=== PATIENT | female | born 1975 | race Caucasian/White ===

== ENCOUNTER 2016-04-27 16:24 | Emergency (ER) | payer OTHER ==
--- NOTE | 2016-04-27 17:32 | ERRECORD ---
[facility] EMERGENCY RECORD HPI DVT (16:56 [facility]) CHIEF COMPLAINT: Patient presents for evaluation of soreness, Patient presents for evaluation of swelling, Patient presents for evaluation of pain. HISTORIAN: History provided by patient, 41F presents with 2 days of persistent right calf pain extending up to her right thigh. Describes mild pain with ambulation and swelling. Denies trauma, denies ankle injury. LOCATION: Symptoms are localized, most severe to R medial calf and thigh. QUALITY: Pain is dull in nature, described as aching, described as a sensation of fullness. TIME COURSE: Sudden onset of symptoms, Symptoms are worsening. ASSOCIATED WITH: No associated symptoms. EXACERBATED BY: Patient's condition exacerbated by bearing weight. RELIEVED BY: Patient's condition relieved by nothing because patient has not tried anything for relief. RISK FACTORS: Deep vein thrombosis risk factors, include oral contraceptive use. ROS (18:14 [facility]) CONSTITUTIONAL: Negative constitutional review of systems, Historian denies chills, denies fever. CARDIOVASCULAR: Negative cardiovascular review of systems, Historian denies chest pain, denies palpitations. RESPIRATORY: Negative respiratory review of systems, Historian denies cough, denies shortness of breath. GI: Negative gastrointestinal review of systems, Historian denies abdominal pain, denies constipation, denies diarrhea, denies nausea, denies vomiting. GENITOURINARY FEMALE: Negative genitourinary review of systems, Historian denies dysuria, denies frequency. SKIN: Negative skin review of systems, Historian denies rash, denies skin changes. NEUROLOGIC: Negative neurologic review of systems, Historian denies headache. HEMO/LYMPHATIC: Normal hematologic/lymphatic system review, Historian denies abnormal blood clotting. PAST MEDICAL HISTORY (16:51 [facility]) MEDICAL HISTORY: Past medical history includes cardiac history, unspecified arrhythmia, Past medical history includes history of hyperlipidemia, Past medical history includes history of diabetes, Type II, Past medical history includes history of hypertension, which has been treated, Past medical history includes history of obesity. FEMALE SURGICAL HISTORY: CYST REMOVED FROM OVARY BILATERAL, ENDOMETRIOSIS, Surgical history of cholecystectomy, laparoscopic, Breast Augmentation:, Date of surgery 2001. breast reduction, 2 EXPLORATORY LAPS, BENIGN TUMOR REMOVED FROM NECK-2015. PSYCHIATRIC HISTORY: Psychiatric history includes, &a-1R&a+25V*p+0X*t0778C*c202B*c15G*c2P*p-0X&a-25V&a+1R Name: Yun Lizarraga : 1975 F41 MedRec: [id number] AcctNum: [id number] Prepared: WedApr 27, 2016 18:27 by Interface Page 1 of 3 pMD [facility] EMERGENCY RECORD schizoaffective disorder, Notes: BIPOLAR AND ANXIETY DISORDER. SOCIAL HISTORY: Patient denies alcohol use, Patient denies drug use, Patient is a former tobacco user, smoked cigarettes, Patient quit smoking more than 10 years ago. KNOWN ALLERGIES adhesive tape ketorolac tromethamine (Unconfirmed) Penicillins: Reaction: Nausea Toradol: - "I STARTED SCREAMING" CURRENT MEDICATIONS (17:17 [facility]) Unknown VITAL SIGNS VITAL SIGNS: BP: 139/89, Pulse: 96, Resp: 18 (Non-Labored), Temp: 98.1 (Oral), Pain: 10, O2 sat: 96 on Room Air, Time: 04/27/2016 16:38. (16:38 [facility]) BP: 142/78, Pulse: 90, Resp: 16 (Non-Labored), Temp: 98.1 (Oral), Pain: 10, O2 sat: 97 on Room Air, Time: 04/27/2016 17:16. (17:16 [facility]) PHYSICAL EXAM CONSTITUTIONAL: Vital signs reviewed, Patient afebrile, Pulse normal, Blood pressure normal, Respiratory rate normal, Patient appears non toxic, Patient appears pain free, Patient alert and oriented to person, place and time. (18:14 [facility]) NECK: Neck exam normal, Neck exam included findings of normal range of motion, Trachea midline, no meningeal signs, no cervical adenopathy, no tenderness. (18:14 [facility]) RESPIRATORY CHEST: Respiratory and chest exam normal, Respiratory exam included findings of no respiratory distress, Breath sounds clear. (18:14 [facility]) CARDIOVASCULAR: Cardiovascular assessment normal, Cardiovascular exam included findings of heart rate regular rate and rhythm, Heart sounds normal. (18:14 [facility]) ABDOMEN FEMALE: Abdominal exam included findings of abdomen nontender, Bowel sounds normal, no distension, no mass, no pulsatile masses, no peritoneal signs, no rigidity, no guarding, no rebound, Rovsing's sign absent. (18:14 [facility]) BACK: Back exam normal, Back exam included findings of normal inspection, range of motion normal, no tenderness. (18:14 [facility]) LOWER EXTREMITY: Pelvis examination normal findings, Hip examination normal findings, Thigh normal, Knee examination normal findings, Lower leg tenderness, right side, tenderness along medial aspect of right calf and thigh. No bony point tnederness, Ankle examination normal findings, Foot examination normal findings. (18:15 [facility]) NEURO: Neuro exam normal, Neuro exam findings include patient oriented to person, place and time, Speech normal, Gait normal. (18:14 [facility]) &a-1R&a+25V*p+0X*n5931F*c202B*c15G*c2P*p-0X&a-25V&a+1R Name: Yun Lizarraga : 1975 F41 MedRec: [id number] AcctNum: [id number] Prepared: WedApr 27, 2016 18:27 by Interface Page 2 of 3 pMD [facility] EMERGENCY RECORD SKIN: Skin exam normal, Skin exam included findings of skin warm, dry, and normal in color, no rash. (18:14 [facility]) DOCTOR NOTES (18:17 [facility]) TEXT: Patient presented with leg pain and concern for DVT. No evidence of bony injury or traumatic injury, nothing to suggest infection. No ability to perform DVT study here, will transfer for further workup. PATIENT STATUS: Patient's status is unchanged since arrival to emergency department. PATIENT PLAN: The patient requires a transfer and will be transferred, per physician request, Transfer form completed. PROBLEM LIST No recorded problems DIAGNOSIS (16:59 [facility]) FINAL: PRIMARY: RIGHT leg pain. PRESCRIPTION No recorded prescriptions DISPOSITION PATIENT: Disposition Type: Transfer, Disposition: Transfer to [facility]. (16:59 [facility] Patient left the department. (17:25 [facility]) Sanders: JOSH=MD Valery, Ren MZOC=JULIANNA Carlson, Michelle &a-1R&a+25V*p+0X*s0903U*c202B*c15G*c2P*p-0X&a-25V&a+1R Name: Yun Lizarraga : 1975 F41 MedRec: [id number] AcctNum: [id number] Prepared: Olivier Apr 27, 2016 18:27 by Interface Page 3 of 3 pMD MTDD
--- NOTE | 2016-04-27 17:36 | PICIS ---
[facility] EMERGENCY RECORD TRIAGE (16:39 [facility]) TRIAGE NOTES: red streaking up RLE to groin onset 1 wk, pt c/o pain upon walking. (16:39 [facility]) PATIENT: NAME: Yun Lizarraga, AGE: 41, GENDER: female, : [facility] 1975, TIME OF GREET: WedApr 27, 2016 16:24, PREFERRED LANGUAGE: Grenadian, ETHNICITY: Not or , ECODE BILLING MAP: [facility], SSN: [id number], Zip Code: [address], KG WEIGHT: 140.61, PHONE: , , , PERSON ID: [id number], PAYMENT: [place] [employer], PCP: none. (16:39 [facility]) COMPLAINT: RLE pain. (16:39 [facility]) ADMISSION: URGENCY: 3 Urgent, ADMISSION SOURCE: Home, TRANSPORT: Walk-in, BED: ER -05. (16:39 [facility]) ASSESSMENT: Additional Triage notes: onset of RLE pain and redness x1wk. (16:51 [facility]) IMMUNIZATIONS: Flu vaccine not up to date, Tetanus immunization up to date, Pneumococcal vaccine not up to date. (16:51 [facility]) SIRS SCORING: Heart Rate 55-109 (0), Temp range 96.8-101.1 (0), respiratory rate 12-24 (0), Mental Status altered: no (0), Infection or Suspected Infection: No. (16:51 [facility]) TRIAGE SCREENING: Patient denies suicidal ideation, Patient denies presence of domestic violence. (16:51 [facility]) LMP: LMP: Not Applicable. (16:51 [facility]) TREATMENTS IN PROGRESS: Treatments given Prehospital: none. (16:51 [facility]) PROVIDERS: TRIAGE NURSE: Cj Carlson RN. (16:39 [facility]) VITAL SIGNS: BP 139/89, Pulse 96, Resp 18, (Non-Labored), Temp 98.1, (Oral), Pain 10, O2 Sat 96, on Room Air, Time 04/27/2016 16:38. (16:38 [facility]) PREVIOUS VISIT ALLERGIES: adhesive tape, Penicillins, Toradol. (16:39 [facility]) adhesive tape, Penicillins, Toradol. (16:51 [facility]) KNOWN ALLERGIES adhesive tape ketorolac tromethamine (Unconfirmed) Penicillins: Reaction: Nausea Toradol: - "I STARTED SCREAMING" CURRENT MEDICATIONS (17:17 [facility]) Unknown VITAL SIGNS VITAL SIGNS: BP: 139/89, Pulse: 96, Resp: 18 (Non-Labored), Temp: 98.1 (Oral), Pain: 10, O2 sat: 96 on Room Air, Time: 04/27/2016 16:38. (16:38 [facility]) BP: 142/78, Pulse: 90, Resp: 16 (Non-Labored), Temp: 98.1 (Oral), Pain: 10, O2 sat: 97 on Room Air, Time: 04/27/2016 17:16. (17:16 [facility]) &a-1R&a+25V*p+0X*x4502Q*c202B*c15G*c2P*p-0X&a-25V&a+1R Name: Yun Lizarraga : 1975 F41 MedRec: [id number] AcctNum: [id number] Prepared: WedApr 27, 2016 18:33 by Interface Page [address] [facility] EMERGENCY RECORD NURSING ASSESSMENT: EXTREMITY LOWER (16:41 [facility]) CONSTITUTIONAL: Patient arrives ambulatory, Gait steady, History obtained from patient, Patient appears comfortable, Patient cooperative, Patient alert, Oriented to person, place and time, Skin warm, Skin dry, Skin normal in color, Mucous membranes pink, Mucous membranes moist, Patient is well-groomed, RLE c/o pain onset 1 wk, pt ambulates with mild limp, pt has apparent single red olivier going from ankle to above knee on R leg. pt states this onset was 1 week also with the pain. pt denies any injury or seeing anone for this problem. PAIN: on a scale 0-10 patient rates pain as 10, Pain exacerbated by nothing, Nothing has been tried to alleviate the pain. LEFT LOWER EXTREMITY: Left lower extremity assessment findings include capillary refill less than 2 seconds, Skin color normal, Skin temperature warm, Distal sensation intact, Muscle tone normal. RIGHT LOWER EXTREMITY: Right lower extremity assessment findings include capillary refill less than 2 seconds, Skin color normal, Skin temperature warm, Distal sensation intact, Muscle tone normal, Notes: pt has red olivier going up LE to above knee. no swellinbg or other redness noted at this time. SAFETY: Side rails up, Cart/Stretcher in lowest position, Family at bedside, Call light within reach, Hospital ID band on. NURSING PROCEDURE: TRANSFER (17:17 [facility]) TRANSFER: Reason for transfer need for specialized care, Diagnosis: R/O DVT, Accepting institution: [facility], Accepting physician: Diogenes, Referring physician: Valery, Transported by private vehicle, next of kin, Report called to receiving facility, Summary of Care printed, Copy of patient record prepared for receiving facility, Patient consent for transfer signed, Family member contacted, Camron at bedside at this time. BELONGINGS: Belongings and valuables with patient upon arrival to the Emergency Department include:, Belongings and valuables with patient at time of discharge include:, Belongings remain with patient, Valuables remain with patient. EQUIPMENT WITH PATIENT: Equipment with patient at time of transfer none. SAFETY: Side rails up, Cart/Stretcher in lowest position, Family at bedside, Call light within reach, Hospital ID band on. HPI DVT (16:56 [facility]) CHIEF COMPLAINT: Patient presents for evaluation of soreness, Patient presents for evaluation of swelling, Patient presents for evaluation of pain. HISTORIAN: History provided by patient, 41F presents with 2 days of persistent right calf pain extending up to her right thigh. Describes mild pain with ambulation and swelling. Denies trauma, denies ankle injury. LOCATION: Symptoms are localized, most severe to R medial calf and thigh. QUALITY: &a-1R&a+25V*p+0X*f3465N*c202B*c15G*c2P*p-0X&a-25V&a+1R Name: Yun Lizarraga : 1975 F41 MedRec: [id number] AcctNum: [id number] Prepared: WedApr 27, 2016 18:33 by Interface Page [address] [facility] EMERGENCY RECORD Pain is dull in nature, described as aching, described as a sensation of fullness. TIME COURSE: Sudden onset of symptoms, Symptoms are worsening. ASSOCIATED WITH: No associated symptoms. EXACERBATED BY: Patient's condition exacerbated by bearing weight. RELIEVED BY: Patient's condition relieved by nothing because patient has not tried anything for relief. RISK FACTORS: Deep vein thrombosis risk factors, include oral contraceptive use. ROS (18:14 [facility]) CONSTITUTIONAL: Negative constitutional review of systems, Historian denies chills, denies fever. CARDIOVASCULAR: Negative cardiovascular review of systems, Historian denies chest pain, denies palpitations. RESPIRATORY: Negative respiratory review of systems, Historian denies cough, denies shortness of breath. GI: Negative gastrointestinal review of systems, Historian denies abdominal pain, denies constipation, denies diarrhea, denies nausea, denies vomiting. GENITOURINARY FEMALE: Negative genitourinary review of systems, Historian denies dysuria, denies frequency. SKIN: Negative skin review of systems, Historian denies rash, denies skin changes. NEUROLOGIC: Negative neurologic review of systems, Historian denies headache. HEMO/LYMPHATIC: Normal hematologic/lymphatic system review, Historian denies abnormal blood clotting. PAST MEDICAL HISTORY (16:51 [facility]) MEDICAL HISTORY: Past medical history includes cardiac history, unspecified arrhythmia, Past medical history includes history of hyperlipidemia, Past medical history includes history of diabetes, Type II, Past medical history includes history of hypertension, which has been treated, Past medical history includes history of obesity. FEMALE SURGICAL HISTORY: CYST REMOVED FROM OVARY BILATERAL, ENDOMETRIOSIS, Surgical history of cholecystectomy, laparoscopic, Breast Augmentation:, Date of surgery 2001. breast reduction, 2 EXPLORATORY LAPS, BENIGN TUMOR REMOVED FROM NECK-2015. PSYCHIATRIC HISTORY: Psychiatric history includes, schizoaffective disorder, Notes: BIPOLAR AND ANXIETY DISORDER. SOCIAL HISTORY: Patient denies alcohol use, Patient denies drug use, Patient is a former tobacco user, smoked cigarettes, Patient quit smoking more than 10 years ago. PHYSICAL EXAM CONSTITUTIONAL: Vital signs reviewed, Patient afebrile, Pulse normal, Blood pressure normal, Respiratory rate normal, Patient appears non toxic, Patient appears pain free, Patient alert and &a-1R&a+25V*p+0X*n5384E*c202B*c15G*c2P*p-0X&a-25V&a+1R Name: Yun Lizarraga : 1975 F41 MedRec: [id number] AcctNum: [id number] Prepared: WedApr 27, 2016 18:33 by Interface Page [address] [facility] EMERGENCY RECORD oriented to person, place and time. (18:14 [facility]) NECK: Neck exam normal, Neck exam included findings of normal range of motion, Trachea midline, no meningeal signs, no cervical adenopathy, no tenderness. (18:14 [facility]) RESPIRATORY CHEST: Respiratory and chest exam normal, Respiratory exam included findings of no respiratory distress, Breath sounds clear. (18:14 [facility]) CARDIOVASCULAR: Cardiovascular assessment normal, Cardiovascular exam included findings of heart rate regular rate and rhythm, Heart sounds normal. (18:14 [facility]) ABDOMEN FEMALE: Abdominal exam included findings of abdomen nontender, Bowel sounds normal, no distension, no mass, no pulsatile masses, no peritoneal signs, no rigidity, no guarding, no rebound, Rovsing's sign absent. (18:14 [facility]) BACK: Back exam normal, Back exam included findings of normal inspection, range of motion normal, no tenderness. (18:14 [facility]) LOWER EXTREMITY: Pelvis examination normal findings, Hip examination normal findings, Thigh normal, Knee examination normal findings, Lower leg tenderness, right side, tenderness along medial aspect of right calf and thigh. No bony point tnederness, Ankle examination normal findings, Foot examination normal findings. (18:15 [facility]) NEURO: Neuro exam normal, Neuro exam findings include patient oriented to person, place and time, Speech normal, Gait normal. (18:14 [facility]) SKIN: Skin exam normal, Skin exam included findings of skin warm, dry, and normal in color, no rash. (18:14 [facility]) EVENTS TRANSFER: Triage to Emergency Emergency Room -05. (WedApr 27, 2016 16:39 [facility]) Removed from Emergency Emergency Room -05. (17:25 [facility]) DOCTOR NOTES (18:17 [facility]) TEXT: Patient presented with leg pain and concern for DVT. No evidence of bony injury or traumatic injury, nothing to suggest infection. No ability to perform DVT study here, will transfer for further workup. PATIENT STATUS: Patient's status is unchanged since arrival to emergency department. PATIENT PLAN: The patient requires a transfer and will be transferred, per physician request, Transfer form completed. PROBLEM LIST No recorded problems DIAGNOSIS (16:59 [facility]) FINAL: PRIMARY: RIGHT leg pain. DISPOSITION &a-1R&a+25V*p+0X*p8213U*c202B*c15G*c2P*p-0X&a-25V&a+1R Name: Yun Lizarraga : 1975 F41 MedRec: [id number] AcctNum: [id number] Prepared: WedApr 27, 2016 18:33 by Interface Page [address] [facility] EMERGENCY RECORD PATIENT: Disposition Type: Transfer, Disposition: Transfer to [facility]. [facility] Patient left the department. (17:25 [facility]) PRESCRIPTION No recorded prescriptions ADMIN (18:19 [facility] DIGITAL SIGNATURE: MD Rasmussen Jason. Sanders: GREGORY=MD Rasmussen Jason MZOC=JULIANNA Carlson, [facility] &a-1R&a+25V*p+0X*l5417E*c202B*c15G*c2P*p-0X&a-25V&a+1R Name: Yun Lizarraga : 1975 F41 MedRec: [id number] AcctNum: [id number] Prepared: WedApr 27, 2016 18:33 by Interface Page 5 of 5 pMD MTDD
== END 2016-04-27 17:17 | disposition short-term general hospital (02) ==
LOC: BURERS 16:24
DX: M79.651 Pain in right thigh (principal); M79.661 Pain in right lower leg; E78.5 Hyperlipidemia, unspecified; E11.9 Type 2 diabetes mellitus without complications; I10 Essential (primary) hypertension; E66.9 Obesity, unspecified; F31.9 Bipolar disorder, unspecified; F41.9 Anxiety disorder, unspecified; Z87.891 Personal history of nicotine dependence; Z88.0 Allergy status to penicillin; Z88.6 Allergy status to analgesic agent
CPT/HCPCS: 99284

== ENCOUNTER 2016-05-21 10:50 | Outpatient (CLI) | payer OTHER ==
[2016-05-21 11:47] LABS: ALT (SGPT) 27 U/L (0-55); AST (SGOT) 23 U/L (5-34); Alkaline Phosphatase 55 U/L (40-150); Anion Gap 14 mmol/L (10-20); BUN (Urea Nitrogen) 17 mg/dL (7.0-18.7); Bilirubin, Total 0.5 mg/dL (0.2-1.2); Calc. Creatinine Clearance 0 mL/min (70-130); Calcium 9.2 mg/dL (7.8-10.44); Carbon Dioxide 23 mmol/L (22-29); Chloride 105 mmol/L (98-107); Estimated GFR-MDRD 69; Globulin 3.4 g/dL (2.4-3.5); LDL Cholesterol, Calculated 103 mg/dL; Protein, Total 7.5 g/dL (6.0-8.3)
[2016-05-21 11:54] LABS: #Eosinphils 0.1 thou/uL (0.0-0.7); #Lymphocytes 1.1 thou/uL (1.20-3.40); #Monocytes 0.4 thou/uL (0.11-0.59); #Neutrophils 4.2 thou/uL (1.40-6.50); %Basophils 0.8 % (0.0-1.0); %Eosinophils 1.2 % (0.0-10.0); %Monocytes 7.3 % (0.0-10.0); Hematocrit 43.7 % (36.0-47.0); Mean Platelet Volume 6.6 fL (7.4-10.4); Red Blood Cell (RBC) Count 4.75 mill/uL (4.20-5.40); White Blood Cell (WBC) Count 5.9 thou/uL (4.8-10.8)
[2016-05-21 12:13] LABS: Hemoglobin A1c 6.1 % (4.0-6.0)
[2016-05-21 17:38] LABS: Microalbumin Urine 1.1 mg/dL (0.5-50.0)
== END 2016-05-21 10:51 | disposition home or self-care (01) ==
LOC: HPCALD 10:50
PROVIDERS: ATTEND Family Medicine
DX: E78.00 Pure hypercholesterolemia, unspecified (principal); E11.9 Type 2 diabetes mellitus without complications
CPT/HCPCS: 36415; 80053; 80061; 82043; 83036; 85025

== ENCOUNTER 2016-10-21 08:47 | Outpatient (CLI) | payer OTHER ==
--- NOTE | 2016-10-21 20:25 | ULT ---
RIGHT LOWER EXTREMITY VENOUS ULTRASOUND 10/21/16 Color duplex doppler ultrasonography of the deep veins to the right lower extremity was performed. A ll deep veins were freely compressible from groin to ankle. There was normal doppler responses to au gmentation maneuvers. No echogenic clot was appreciated. IMPRESSION: No evidence of DVT. POS: HOME
== END 2016-10-21 08:48 | disposition home or self-care (01) ==
LOC: BURULT 08:47
PROVIDERS: ATTEND Family Medicine
DX: I82.401 Acute embolism and thrombosis of unspecified deep veins of right lower extremity (principal)

== ENCOUNTER 2017-01-30 15:33 | Emergency (ER) | payer OTHER ==
[2017-01-30 15:55] LABS: Bilirubin Negative (Negative); Blood, Urine Large (Negative); Clarity Cloudy (Clear); Glucose, Urine (Dipstick) >=1000 mg/dL (Negative); Leukocyte Trace (Negative); Nitrite Negative (Negative); Protein, Urine (Dipstick) Negative (Neg-Trace); Specific Gravity, Urine 1.025 (1.005-1.030); Urobilinogen 0.2 mg/dL (0.2-1.0); pH, Urine 5.5 (5.0-9.0)
[2017-01-30 15:56] LABS: Pregnancy Test - Urine (BHCG) Negative (Negative); Pregu Control Background? CLEAR/WHITE (CLR/WHITE); Pregu Control Bar Appear? YES (CONTROL BAR); Specific Gravity 1.025 (1.002-1.036)
[2017-01-30 16:00] LABS: RBC/HPF 21-50 HPF (0-3)
[2017-01-30 16:01] LABS: Bacteria/HPF 3+ HPF (None Seen)
[2017-01-30] MEDS ORDERED: Cephalexin 250 MG CAP ONE (16:13)
== END 2017-01-30 16:17 | disposition home or self-care (01) ==
LOC: BURERS 15:33
DX: N39.0 Urinary tract infection, site not specified (principal); I48.91 Unspecified atrial fibrillation; E11.9 Type 2 diabetes mellitus without complications; E66.9 Obesity, unspecified; E78.5 Hyperlipidemia, unspecified; I10 Essential (primary) hypertension; Z86.718 Personal history of other venous thrombosis and embolism; F25.9 Schizoaffective disorder, unspecified; Z87.891 Personal history of nicotine dependence
CPT/HCPCS: 81003; 81015; 81025; 99283

== ENCOUNTER 2018-03-11 10:02 | Emergency (ER) | payer OTHER ==
[2018-03-11] MEDS ORDERED: Diazepam 5 MG TAB ONE (10:20)
[2018-03-11] MEDS ORDERED: Acetaminophen 500 MG TAB ONE (10:21)
== END 2018-03-11 11:04 | disposition home or self-care (01) ==
LOC: BURERS 10:02
DX: M54.12 Radiculopathy, cervical region (principal); E11.9 Type 2 diabetes mellitus without complications; Z87.891 Personal history of nicotine dependence
CPT/HCPCS: 99283

== ENCOUNTER 2018-08-13 13:40 | Emergency (ER) | payer OTHER ==
[2018-08-13] MEDS ORDERED: Adacel (T-DAP) 0.5 ML SYRINGE ONE (14:06)
== END 2018-08-13 14:16 | disposition home or self-care (01) ==
LOC: BURERS 13:40
DX: S50.811A Abrasion of right forearm, initial encounter (principal); I48.91 Unspecified atrial fibrillation; E78.5 Hyperlipidemia, unspecified; E11.9 Type 2 diabetes mellitus without complications; E66.9 Obesity, unspecified; Z86.718 Personal history of other venous thrombosis and embolism; F25.9 Schizoaffective disorder, unspecified; F31.9 Bipolar disorder, unspecified; Z87.891 Personal history of nicotine dependence; Z79.01 Long term (current) use of anticoagulants; W55.03XA Scratched by cat, initial encounter
CPT/HCPCS: 90471; 90715

== ENCOUNTER 2018-08-23 10:23 | Emergency (ER) | payer OTHER ==
[2018-08-23] MEDS ORDERED: Sodium Chloride 0.9% 100 ML ONE (11:07)
[2018-08-23] MEDS ORDERED: Piperacillin/Tazobactam 4.5 GM VIAL ONE (11:07)
[2018-08-23] MEDS ORDERED: Acetaminophen 500 MG TAB ONE (11:08)
[2018-08-23 11:09] LABS: Bilirubin Negative (Negative); Blood, Urine Negative (Negative); Clarity Clear (Clear); Glucose, Urine (Dipstick) 500 mg/dL (Negative); Leukocyte Negative (Negative); Nitrite Negative (Negative); Protein, Urine (Dipstick) Negative (Neg-Trace); Urobilinogen 0.2 mg/dL (0.2-1.0)
[2018-08-23 11:09] LABS: ALT (SGPT) 21 U/L (8-55); AST (SGOT) 11 U/L (5-34); Albumin 3.9 g/dL (3.5-5.0); Alkaline Phosphatase 79 U/L (40-150); Anion Gap 14 mmol/L (10-20); BUN (Urea Nitrogen) 12 mg/dL (7.0-18.7); Bilirubin, Total 0.4 mg/dL (0.2-1.2); Calc. Creatinine Clearance 0 mL/min (70-130); Calcium 9.8 mg/dL (7.8-10.44); Carbon Dioxide 22 mmol/L (22-29); Chloride 106 mmol/L (98-107); Estimated GFR-MDRD 87; Globulin 3.4 g/dL (2.4-3.5); Glucose 185 mg/dL (70-105); Potassium 4.1 mmol/L (3.5-5.1); Protein, Total 7.3 g/dL (6.0-8.3); Sodium 138 mmol/L (136-145)
[2018-08-23 11:15] LABS: Band 2 % (5-11); Eosinophils 4 % (0-10); Hemoglobin 13.3 g/dL (12.0-16.0); Lymphocytes 12 % (21-51); MDiff Complete? YES; Mean Corpuscular HGB CONC 31.7 g/dL (32.0-36.0); Mean Corpuscular Hemoglobin 29.2 pg (27.0-31.0); Mean Corpuscular Volume 91.9 fL (78.0-98.0); Mean Platelet Volume 6.4 fL (7.4-10.4); Monocytes 3 % (0-10); Neutrophil 79 % (42-75); Platelet Count 305 thou/uL (130-400); RBC Distribution Width 13.3 % (11.5-14.5); Red Blood Cell (RBC) Count 4.56 mill/uL (4.20-5.40); White Blood Cell (WBC) Count 13.3 thou/uL (4.8-10.8)
[2018-08-23 11:16] LABS: Prothrombin Time 12.8 SEC (12.0-14.7)
[2018-08-23 11:17] LABS: PTT 19.7 SEC (22.9-36.1)
[2018-08-23] MEDS ORDERED: Enoxaparin Sodium 100 MG/ML SYRINGE ONE (11:57)
[2018-08-23] MEDS ORDERED: Fentanyl 100 MCG/2 ML VIAL ONE (12:38)
--- NOTE | 2018-08-23 17:34 | RAD ---
CHEST TWO VIEWS: 08/23/18 Comparison is made with a 12/18/17 portable film. The heart is normal in size and the lungs are clear. There are no findings of pneumonia or pleural ef fusion at the moment. There is no vascular congestion or edema. IMPRESSION: No acute thoracic finding. POS: HOME
--- NOTE | 2018-08-23 17:47 | CT ---
CT ABDOMEN AND PELVIS WITH CONTRAST: 08/23/[address] of the abdomen and pelvis was performed in this patient with fever, cough, abdominal pain, and who is six days postop for a hysterectomy. Axial slices were acquired followed by coronal recons tructions. Sagittal reconstructions were provided as well. The lung bases are clear. There is no sign of infiltrate or effusion. The liver, spleen, and pancreas appear normal. There has been a prior cholecystectomy. The adrenal glands, kidneys and abdominal aor ta appear normal. 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 The bowel shows no distention. Multiple fluid filled loops of small bowel are present but with no dil ation. No free air or free fluid was seen in the upper abdomen. CT of the pelvis shows a significant amount of inflammatory type streaking in the operative bed. Ther e is a small to medium amount of fluid in the region of the cul-de-sac. Some of this would be expecte d to be postoperative change. The possibility of infection should be considered, however, given the d egree of infiltrative change and the patient's presentation. While there is definitely some fluid pre sent in the cul-de-sac, it is unknown if this is still merely postoperative in nature or if it could be infection. A large drainable fluid collection is probably not present as of yet. IMPRESSION: Impressive inflammatory type streaking in the pelvis around the area of the operative bed along with some fluid in the cul-de-sac. While much of this is likely just postoperative change, given the patie nt's presentation, it probably should be considered to be infection and treated as such. If she worse ns in any way, then rescanning of the pelvis looking for a more definite drainable fluid collection m ight be needed. Findings discussed with Dr. Price at 11:38 on 08/14/18. POS: HOME
== END 2018-08-23 14:14 | disposition short-term general hospital (02) ==
LOC: BURERS 10:23
DX: K65.8 Other peritonitis (principal); J18.1 Lobar pneumonia, unspecified organism; E78.5 Hyperlipidemia, unspecified; E11.9 Type 2 diabetes mellitus without complications; E66.9 Obesity, unspecified; F31.9 Bipolar disorder, unspecified; F20.9 Schizophrenia, unspecified; Z79.899 Other long term (current) drug therapy; Z86.718 Personal history of other venous thrombosis and embolism; Z79.84 Long term (current) use of oral hypoglycemic drugs; Z79.891 Long term (current) use of opiate analgesic
CPT/HCPCS: 36415; 36416; 51701; 71046; 74177; 80053; 81003; 83605; 85025; 85610; 85730; 87040; 94760; 96365; 96366; 96367; 96372; 96375; A4353; J1650; J2543; J3010; J3370; J3490

== ENCOUNTER 2018-11-28 17:05 | Emergency (ER) | payer OTHER ==
[2018-11-28] MEDS ORDERED: Cyclobenzaprine 10 MG TAB ONE (18:53)
[2018-11-28] MEDS ORDERED: Ibuprofen 800 MG TAB ONE (18:53)
== END 2018-11-28 19:30 | disposition home or self-care (01) ==
LOC: BURERS 17:05
DX: R51 Headache (principal); I48.91 Unspecified atrial fibrillation; E78.5 Hyperlipidemia, unspecified; E11.9 Type 2 diabetes mellitus without complications; E66.9 Obesity, unspecified; F43.10 Post-traumatic stress disorder, unspecified; F31.9 Bipolar disorder, unspecified; Z79.899 Other long term (current) drug therapy; Z79.84 Long term (current) use of oral hypoglycemic drugs
CPT/HCPCS: 99283

== ENCOUNTER 2019-01-11 18:56 | Emergency (ER) | payer OTHER ==
[2019-01-11] MEDS ORDERED: Famotidine 20 MG TAB ONE (19:00)
[2019-01-11] MEDS ORDERED: hydrOXYzine 25 MG TAB ONE (19:00)
[2019-01-11] MEDS ORDERED: predniSONE 20 MG TAB ONE (19:00)
== END 2019-01-11 19:47 | disposition home or self-care (01) ==
LOC: BURERS 18:56
DX: T78.1XXA Other adverse food reactions, not elsewhere classified, initial encounter (principal); R06.02 Shortness of breath; R05 Cough; E78.5 Hyperlipidemia, unspecified; E11.9 Type 2 diabetes mellitus without complications; I48.91 Unspecified atrial fibrillation; Z79.899 Other long term (current) drug therapy; Z87.891 Personal history of nicotine dependence
CPT/HCPCS: 99282; J7512

== ENCOUNTER 2019-05-03 12:20 | Emergency (ER) | payer OTHER ==
[2019-05-03] MEDS ORDERED: Tetracaine 0.5% OPHTH SOLN/PF 4 ML BOT ONE (12:32)
== END 2019-05-03 13:25 | disposition home or self-care (01) ==
LOC: BURERS 12:20
DX: Z77.098 Contact with and (suspected) exposure to other hazardous, chiefly nonmedicinal, chemicals (principal); I48.91 Unspecified atrial fibrillation; E78.5 Hyperlipidemia, unspecified; E11.9 Type 2 diabetes mellitus without complications; Z86.718 Personal history of other venous thrombosis and embolism; F31.9 Bipolar disorder, unspecified; F43.10 Post-traumatic stress disorder, unspecified; Z87.891 Personal history of nicotine dependence; Z79.899 Other long term (current) drug therapy; Z79.01 Long term (current) use of anticoagulants; Z79.84 Long term (current) use of oral hypoglycemic drugs
CPT/HCPCS: 99283

== ENCOUNTER 2019-08-21 19:18 | Emergency (ER) | payer OTHER ==
[~2019-08-21 19:18] MED LIST: Iopamidol 370 76% 100 ML VIAL ONE
[2019-08-21 20:07] LABS: #Basophils 0.1 thou/uL (0.0-0.2); #Eosinphils 0.2 thou/uL (0.0-0.7); #Lymphocytes 2.9 thou/uL (1.20-3.40); #Monocytes 0.5 thou/uL (0.11-0.59); #Neutrophils 5.9 thou/uL (1.40-6.50); %Eosinophils 2.2 % (0.0-10.0); %Lymphocytes 29.7 % (21.0-51.0); %Monocytes 5.6 % (0.0-10.0); %Neutrophils 61.5 % (42.0-75.0); Mean Corpuscular HGB CONC 30.8 g/dL (32.0-36.0); Mean Corpuscular Hemoglobin 28.6 pg (27.0-31.0); Mean Corpuscular Volume 92.8 fL (78.0-98.0); Mean Platelet Volume 7.5 fL (7.4-10.4); Platelet Count 175 thou/uL (130-400); Red Blood Cell (RBC) Count 5.93 mill/uL (4.20-5.40); White Blood Cell (WBC) Count 9.6 thou/uL (4.8-10.8)
[2019-08-21 20:19] LABS: ALT (SGPT) 23 U/L (8-55); AST (SGOT) 16 U/L (5-34); Albumin 3.8 g/dL (3.5-5.0); Alkaline Phosphatase 71 U/L (40-110); Anion Gap 15 mmol/L (10-20); BUN (Urea Nitrogen) 18 mg/dL (7.0-18.7); Bilirubin, Total 0.6 mg/dL (0.2-1.2); Calc. Creatinine Clearance 0 mL/min (70-130); Calcium 9.1 mg/dL (7.8-10.44); Carbon Dioxide 20 mmol/L (22-29); Chloride 109 mmol/L (98-107); Estimated GFR-MDRD 71; Globulin 2.4 g/dL (2.4-3.5); Glucose 215 mg/dL (70-105); Potassium 3.9 mmol/L (3.5-5.1); Protein, Total 6.2 g/dL (6.0-8.3); Sodium 140 mmol/L (136-145)
--- NOTE | 2019-08-22 07:20 | RAD ---
PORTABLE CHEST: Date: 08/21/2019 An AP portable film at 2004 hours is compared with a 08/14/2019 study. The heart is normal in size and the lungs are clear. No infiltrate or effusion seen. The mediastinum appears normal. IMPRESSION: Stable exam showing no acute findings. POS: HOME
--- NOTE | 2019-08-22 07:25 | CT ---
CT ANGIO CHEST AND CT ABDOMEN AND PELVIS WITH CONTRAST: Date: 08/21/2019 Initially, a CT angio of the chest was performed using a bolus of IV contrast. Multiplanar reconstruc tions and MIP imaging was done afterwards. CT of the abdomen and pelvis then followed with IV contras t with multiplanar reconstructions as well. CT ANGIO CHEST: A CT angio of the chest was done after a bolus of IV contrast. There is excellent opacification of th e pulmonary arteries with no signs of emboli. The aorta shows no aneurysm or dissection. The heart is interesting in that there is a collection of pericardial fluid seen posteriorly and late rally towards the left. This was not present on a 2019 CT. The etiology is uncertain. Both coronary a rteries fill. The mediastinum showed no mass or adenopathy of concern. The lungs are clear, except fo r some minimal dependent atelectasis. There were no significant infiltrates or effusions. CT ABDOMEN AND PELVIS: The liver and spleen are somewhat generous in size with the spleen measuring about 14.0 cm in length. The liver is slightly low density which could signify fatty infiltration. The size of each is no dif ferent than it was in 2019, however. There has been a prior cholecystectomy. The pancreas, adrenal gl ands, kidneys, and abdominal aorta appeared normal. The mesenteric arteries fill off the aorta normal ly, as do the renal arteries. The bowel shows no distention, wall thickening, or inflammatory change around it. The appendix was id entified and appears normal. There is no free air or free fluid. CT of the pelvis shows no pelvic masses or adnexal pathology. No free fluid or inflammatory change se en. There is some mild general bulging of the L5-S1 disc. IMPRESSION: 1. No evidence of pulmonary embolism. 2. Pericardial effusion of unknown significance. 3. Clear lungs. 4. Borderline liver and splenic size, but unchanged from 2019. 5. No acute abdominal or pelvic findings. Results discussed with Dr. Duarte at 2135 hours on 08/21/2019. CODE CR. POS: HOME
== END 2019-08-21 22:19 | disposition home or self-care (01) ==
LOC: BURERS 19:18
DX: I31.3 Pericardial effusion (noninflammatory) (principal); I49.9 Cardiac arrhythmia, unspecified; I48.91 Unspecified atrial fibrillation; E78.5 Hyperlipidemia, unspecified; E11.9 Type 2 diabetes mellitus without complications; E66.9 Obesity, unspecified; F31.9 Bipolar disorder, unspecified; F25.9 Schizoaffective disorder, unspecified; F43.10 Post-traumatic stress disorder, unspecified; Z86.718 Personal history of other venous thrombosis and embolism; Z87.891 Personal history of nicotine dependence; Z79.899 Other long term (current) drug therapy; Z79.84 Long term (current) use of oral hypoglycemic drugs; Z79.01 Long term (current) use of anticoagulants
CPT/HCPCS: 36416; 71045; 71260; 74177; 80053; 83880; 84484; 85025; 85379; 93005; 36415-59; Q9967

== ENCOUNTER 2020-05-06 11:16 | Outpatient (CLI) | payer OTHER | END 2020-05-06 11:17 | disposition home or self-care (01) | LOC: BURRAD 11:16 | PROVIDERS: ATTEND Family Medicine | DX: M25.512 Pain in left shoulder (principal); M54.5 Low back pain | CPT/HCPCS: 72100 ==

== ENCOUNTER 2020-05-17 21:03 | Emergency (ER) | payer OTHER ==
[2020-05-17] MEDS ORDERED: Ondansetron PF 4 MG/2 ML Vial ONE (21:26)
[2020-05-17] MEDS ORDERED: Fentanyl 100 MCG/2 ML VIAL ONE (21:26)
[2020-05-17 21:35] LABS: #Basophils 0.1 thou/uL (0.0-0.2); #Eosinphils 0.3 thou/uL (0.0-0.7); #Lymphocytes 3.5 thou/uL (1.20-3.40); #Monocytes 0.6 thou/uL (0.11-0.59); #Neutrophils 5.7 thou/uL (1.40-6.50); %Basophils 0.9 % (0.0-1.0); %Eosinophils 2.6 % (0.0-10.0); %Lymphocytes 34.4 % (21.0-51.0); %Neutrophils 56.1 % (42.0-75.0); Hemoglobin 15.5 g/dL (12.0-16.0); Mean Corpuscular HGB CONC 31.3 g/dL (32.0-36.0); Mean Corpuscular Hemoglobin 29.4 pg (27.0-31.0); Mean Corpuscular Volume 94.1 fL (78.0-98.0); Mean Platelet Volume 8.2 fL (7.4-10.4); Platelet Count 168 thou/uL (130-400); RBC Distribution Width 12.6 % (11.5-14.5); Red Blood Cell (RBC) Count 5.28 mill/uL (4.20-5.40); White Blood Cell (WBC) Count 10.2 thou/uL (4.8-10.8)
[2020-05-17 21:39] LABS: Bilirubin Negative (Negative); Blood, Urine Negative (Negative); Clarity Clear (Clear); Glucose, Urine (Dipstick) 500 mg/dL (Negative); Ketone, Urine Negative (Negative); Leukocyte Negative (Negative); Nitrite Negative (Negative); Protein, Urine (Dipstick) Negative (Neg-Trace); Specific Gravity, Urine 1.025 (1.005-1.030); Urobilinogen 0.2 mg/dL (Less than 2)
[2020-05-17 21:46] LABS: ALT (SGPT) 26 U/L (8-55); AST (SGOT) 15 U/L (5-34); Albumin 4.2 g/dL (3.5-5.0); Alkaline Phosphatase 96 U/L (40-110); Anion Gap 12 mmol/L (10-20); BUN (Urea Nitrogen) 20 mg/dL (7.0-18.7); Bilirubin, Total 0.2 mg/dL (0.2-1.2); Calc. Creatinine Clearance 0 mL/min (70-130); Calcium 9.4 mg/dL (7.8-10.44); Carbon Dioxide 27 mmol/L (22-29); Chloride 106 mmol/L (98-107); Glucose 109 mg/dL (70-105); Lipase 72 U/L (8-78); Potassium 4.1 mmol/L (3.5-5.1); Protein, Total 7.2 g/dL (6.0-8.3); Sodium 141 mmol/L (136-145)
[2020-05-17] MEDS ORDERED: Morphine 2 MG/ML VIAL ONE (22:18)
[2020-05-17] MEDS ORDERED: Sodium Chloride 0.9% 100 ML ONE (22:25)
[2020-05-17] MEDS ORDERED: Cefepime 2 GM VIAL ONE (22:25)
--- NOTE | 2020-05-17 22:43 | CT ---
CT ABDOMEN AND PELVIS WITH CONTRAST: Date: 05/17/[address] of the abdomen and pelvis was performed for evaluation of abdominal pain, particularly righ t lower quadrant. The major finding on the study is dilation of the appendix, varying from 1.3 to 1.7 cm in diameter. T here is periappendiceal stranding. Some air is still present in the appendix. I do not see any free a ir or abscess around it at this time. The lung bases are clear. There may be a small amount of pericardial effusion. A little bit of pleura l thickening is suggested in the right posterior hemithorax. The liver, spleen, pancreas, adrenal gla nds, kidneys, and aorta showed no acute findings. There has been a prior cholecystectomy. Aside from the appendiceal findings, the remainder of the bowel is unremarkable in appearance. No brown e air or free fluid was seen in the abdomen. CT of the pelvis showed no additional findings of concern. IMPRESSION: 1. Acute appendicitis without surrounding abscess or free air. Appendiceal width varies from 1.3-1.7 cm. 2. Trace pericardial fluid, which may or may not be of significance. Findings discussed with Dr. Youngblood at 2209 hours on 05/17/2020. CODE CR. POS: HOME
== END 2020-05-17 22:40 | disposition short-term general hospital (02) ==
LOC: BURERS 21:03
DX: K63.89 Other specified diseases of intestine (principal); I48.91 Unspecified atrial fibrillation; E11.9 Type 2 diabetes mellitus without complications; E78.5 Hyperlipidemia, unspecified; E66.9 Obesity, unspecified; F17.290 Nicotine dependence, other tobacco product, uncomplicated; Z79.84 Long term (current) use of oral hypoglycemic drugs; Z79.899 Other long term (current) drug therapy
CPT/HCPCS: 74177; 80053; 81003; 83690; 85025; 96365; 96375; J0692; J2270; J2405; J3010; J3490

== ENCOUNTER 2020-08-21 13:28 | Emergency (ER) | payer OTHER ==
[2020-08-21] MEDS ORDERED: Ibuprofen 800 MG TAB ONE (13:58)
== END 2020-08-21 14:46 | disposition home or self-care (01) ==
LOC: BURERS 13:28
DX: S39.012A Strain of muscle, fascia and tendon of lower back, initial encounter (principal); S63.617A Unspecified sprain of left little finger, initial encounter; S20.219A Contusion of unspecified front wall of thorax, initial encounter; S43.402A Unspecified sprain of left shoulder joint, initial encounter; S80.01XA Contusion of right knee, initial encounter; S50.811A Abrasion of right forearm, initial encounter; I49.9 Cardiac arrhythmia, unspecified; I48.91 Unspecified atrial fibrillation; E78.5 Hyperlipidemia, unspecified; E11.9 Type 2 diabetes mellitus without complications; E66.9 Obesity, unspecified; F17.200 Nicotine dependence, unspecified, uncomplicated; Z86.718 Personal history of other venous thrombosis and embolism; Z79.899 Other long term (current) drug therapy; Z79.84 Long term (current) use of oral hypoglycemic drugs; Z79.01 Long term (current) use of anticoagulants; W18.30XA Fall on same level, unspecified, initial encounter

== ENCOUNTER 2021-02-28 13:11 | Emergency (ER) | payer OTHER | END 2021-02-28 13:51 | disposition home or self-care (01) | LOC: BURERS 13:11 | DX: S61.210A Laceration without foreign body of right index finger without damage to nail, initial encounter (principal); W26.8XXA Contact with other sharp object(s), not elsewhere classified, initial encounter; E11.9 Type 2 diabetes mellitus without complications; E78.5 Hyperlipidemia, unspecified; E66.9 Obesity, unspecified; I48.91 Unspecified atrial fibrillation; I82.403 Acute embolism and thrombosis of unspecified deep veins of lower extremity, bilateral; F17.200 Nicotine dependence, unspecified, uncomplicated | CPT/HCPCS: 12001 ==

== ENCOUNTER 2021-07-19 23:06 | Emergency (ER) | payer OTHER ==
[2021-07-19 23:52] LABS: #Basophils 0.1 thou/uL (0.0-0.2); #Eosinphils 0.3 thou/uL (0.0-0.7); #Lymphocytes 3.4 thou/uL (1.20-3.40); #Monocytes 0.5 thou/uL (0.11-0.59); #Neutrophils 4.3 thou/uL (1.40-6.50); %Basophils 0.9 % (0.0-1.0); %Lymphocytes 39.5 % (21.0-51.0); %Monocytes 6.1 % (0.0-10.0); %Neutrophils 49.5 % (42.0-75.0); Hemoglobin 15.5 g/dL (12.0-16.0); Mean Corpuscular HGB CONC 34.4 g/dL (32.0-36.0); Mean Corpuscular Hemoglobin 32.3 pg (27.0-31.0); Mean Corpuscular Volume 93.9 fL (78.0-98.0); Mean Platelet Volume 7.3 fL (7.4-10.4); Platelet Count 154 thou/uL (130-400); RBC Distribution Width 12.8 % (11.5-14.5); Red Blood Cell (RBC) Count 4.79 mill/uL (4.20-5.40); White Blood Cell (WBC) Count 8.6 thou/uL (4.8-10.8)
[2021-07-20] MEDS ORDERED: Fentanyl 100 MCG/2 ML VIAL ONE (00:06)
[2021-07-20] MEDS ORDERED: Ondansetron PF 4 MG/2 ML Vial ONE (00:06)
[2021-07-20 00:11] LABS: ALT (SGPT) 28 U/L (8-55); AST (SGOT) 14 U/L (5-34); Albumin 4.3 g/dL (3.5-5.0); Alkaline Phosphatase 81 U/L (40-110); Anion Gap 17 mmol/L (10-20); BUN (Urea Nitrogen) 26 mg/dL (7.0-18.7); Bilirubin, Total 0.4 mg/dL (0.2-1.2); Calc. Creatinine Clearance 0 mL/min (70-130); Calcium 9.5 mg/dL (7.8-10.44); Carbon Dioxide 21 mmol/L (22-29); Chloride 106 mmol/L (98-107); Globulin 3.3 g/dL (2.4-3.5); Glucose 184 mg/dL (70-105); Lipase 282 U/L (8-78); Potassium 3.9 mmol/L (3.5-5.1); Protein, Total 7.6 g/dL (6.0-8.3); Sodium 140 mmol/L (136-145)
== END 2021-07-20 01:30 | disposition home or self-care (01) ==
LOC: BURERS 23:06
DX: K85.90 Acute pancreatitis without necrosis or infection, unspecified (principal); E11.9 Type 2 diabetes mellitus without complications; I10 Essential (primary) hypertension; I48.91 Unspecified atrial fibrillation; E66.9 Obesity, unspecified; E78.5 Hyperlipidemia, unspecified; F17.200 Nicotine dependence, unspecified, uncomplicated; Z79.01 Long term (current) use of anticoagulants; Z79.84 Long term (current) use of oral hypoglycemic drugs; Z79.899 Other long term (current) drug therapy; Z86.718 Personal history of other venous thrombosis and embolism
CPT/HCPCS: 74177; 80053; 83690; 83880; 84484; 85025; 93005; 96374; 96375; J2405; J3010

== ENCOUNTER 2021-10-28 10:17 | Emergency (ER) | payer OTHER ==
[2021-10-28] MEDS ORDERED: Iopamidol 370 76% 100 ML VIAL FS ONE (10:18)
[2021-10-28 10:52] LABS: BHCG - Serum Negative (NEGATIVE); Pregs Control Background? CLEAR/WHITE (CLR/WHITE); Pregs Control Bar Appear? YES (CONTROL BAR)
[2021-10-28 10:55] LABS: Anion Gap 15 mmol/L (10-20); BUN (Urea Nitrogen) 16 mg/dL (7.0-18.7); Carbon Dioxide 23 mmol/L (22-29); Chloride 109 mmol/L (98-107); Potassium 3.9 mmol/L (3.5-5.1); Sodium 143 mmol/L (136-145)
[2021-10-28 10:56] LABS: ALT (SGPT) 48 U/L (8-55); AST (SGOT) 28 U/L (5-34); Albumin 4.1 g/dL (3.5-5.0); Alkaline Phosphatase 38 U/L (40-110); Bilirubin, Total 0.2 mg/dL (0.2-1.2); Calc. Creatinine Clearance 0 mL/min (70-130); Calcium 9.3 mg/dL (7.8-10.44); Estimated GFR 89; Globulin 2.8 g/dL (2.4-3.5); Glucose 223 mg/dL (70-105); Protein, Total 6.9 g/dL (6.0-8.3)
[2021-10-28 11:01] LABS: Hemoglobin 14.6 g/dL (12.0-16.0); Mean Corpuscular HGB CONC 34.1 g/dL (32.0-36.0); Mean Corpuscular Hemoglobin 31.5 pg (27.0-31.0); Mean Corpuscular Volume 92.3 fL (78.0-98.0); Mean Platelet Volume 8.1 fL (7.4-10.4); Platelet Count 170 thou/uL (130-400); RBC Distribution Width 12.7 % (11.5-14.5); Red Blood Cell (RBC) Count 4.63 mill/uL (4.20-5.40)
[2021-10-28 11:02] LABS: Eosinophils 5 % (0-10); Lymphocytes 42 % (21-51); MDiff Complete? YES; Monocytes 6 % (0-10); Neutrophil 46 % (42-75)
[2021-10-28] MEDS ORDERED: Lorazepam 2 MG/ML VIAL ONE (11:04)
[2021-10-28] MEDS ORDERED: Metoclopramide HCl 10 MG/2 ML VIAL ONE (12:31)
[2021-10-28] MEDS ORDERED: HYDROcodone/Acetaminophen 5/325 mg Tablet ONE (13:42)
== END 2021-10-28 13:43 | disposition home or self-care (01) ==
LOC: BURERS 10:17
DX: I31.3 Pericardial effusion (noninflammatory) (principal); R51.9 Headache, unspecified; E11.9 Type 2 diabetes mellitus without complications; E78.5 Hyperlipidemia, unspecified; I48.91 Unspecified atrial fibrillation; Z79.899 Other long term (current) drug therapy; Z79.01 Long term (current) use of anticoagulants; Z79.84 Long term (current) use of oral hypoglycemic drugs
CPT/HCPCS: 36415; 71045; 71275; 80053; 83880; 84484; 84703; 85025; 93005; 96374; 96375; J2060; J2765; Q9967

== ENCOUNTER 2022-04-08 15:55 | Emergency (ER) | payer OTHER | END 2022-04-08 16:42 | disposition home or self-care (01) | LOC: BURERS 15:55 | DX: L03.314 Cellulitis of groin (principal); B35.6 Tinea cruris; E11.9 Type 2 diabetes mellitus without complications; E78.5 Hyperlipidemia, unspecified; Z79.899 Other long term (current) drug therapy; Z79.84 Long term (current) use of oral hypoglycemic drugs | CPT/HCPCS: 99283 ==

== ENCOUNTER 2022-07-17 17:28 | Emergency (ER) | payer OTHER ==
[2022-07-17] MEDS ORDERED: Bacitracin 1 PK ONE (17:41)
[2022-07-17 18:13] LABS: Bilirubin Negative (Negative); Blood, Urine Negative (Negative); Clarity Slightly Cloudy (Clear); Glucose, Urine (Dipstick) 500 mg/dL (Negative); Ketone, Urine Negative (Negative); Leukocyte Negative (Negative); Nitrite Negative (Negative); Protein, Urine (Dipstick) Negative (Neg-Trace)
== END 2022-07-17 18:00 | disposition home or self-care (01) ==
LOC: BURERS 17:28
DX: R23.8 Other skin changes (principal); E66.9 Obesity, unspecified
CPT/HCPCS: 81003; 99283

== ENCOUNTER 2023-08-16 12:54 | Emergency (ER) | payer OTHER ==
[2023-08-16] MEDS ORDERED: Ipratropium/Albuterol 3 ML NEB ONE (13:53)
[2023-08-16] MEDS ORDERED: Lorazepam 1 MG TAB ONE (13:54)
[2023-08-16] MEDS ORDERED: Lorazepam 2 MG/ML VIAL ONE (13:56)
== END 2023-08-16 15:04 | disposition home or self-care (01) ==
LOC: BURERS 12:54
DX: R13.10 Dysphagia, unspecified (principal); E11.9 Type 2 diabetes mellitus without complications
CPT/HCPCS: 70360; 71046; 96372; J2060; J7620

== ENCOUNTER 2023-09-25 11:30 | Emergency (ER) | payer OTHER ==
[2023-09-25] MEDS ORDERED: Acetaminophen 500 MG TAB ONE (11:44)
== END 2023-09-25 12:30 | disposition home or self-care (01) ==
LOC: BURERS 11:30
DX: S90.121A Contusion of right lesser toe(s) without damage to nail, initial encounter (principal); E11.9 Type 2 diabetes mellitus without complications; Z79.4 Long term (current) use of insulin; W26.9XXA Contact with unspecified sharp object(s), initial encounter

== ENCOUNTER 2023-10-27 11:28 | Outpatient (CLI) | payer OTHER | END 2023-10-27 11:29 | disposition home or self-care (01) | LOC: BURRAD 11:28 | PROVIDERS: ATTEND Physician Assistant | DX: M79.671 Pain in right foot (principal) ==

== ENCOUNTER 2024-03-13 12:56 | Emergency (ER) | payer OTHER | END 2024-03-13 14:27 | disposition home or self-care (01) | LOC: BURERS 12:56 | DX: S93.602A Unspecified sprain of left foot, initial encounter (principal); E11.9 Type 2 diabetes mellitus without complications; I48.91 Unspecified atrial fibrillation; W19.XXXA Unspecified fall, initial encounter | CPT/HCPCS: 99283 ==